=== PATIENT | female | born 1975 | race Caucasian/White ===

== ENCOUNTER 2017-09-20 18:55 | Emergency (ER) | payer BC, MEDICAID ==
[~2017-09-20] VITALS: Ht 157.5 cm; Wt 59.0 kg
[2017-09-20 19:28] LABS: APPEARANCE,URINE Clear (CLEAR); BILIRUBIN,URINE Negative (NEGATIVE); BLOOD, URINE Large Ery/uL (NEGATIVE); COLOR,URINE Yellow (YELLOW); KETONES,URINE Trace (NEGATIVE); LEUKOCYTE ESTERASE ,URINE Trace (NEGATIVE); NITRITE, URINE Negative (NEGATIVE); PROTEIN,URINE Negative (NEGATIVE); UGLUCOSE Negative (NEGATIVE); UROBILINOGEN,URINE 0.2 EU/dL (0.2)
[2017-09-20 19:36] LABS: RBC,URINE 21-50 /HPF (0-2)
[2017-09-20 19:38] LABS: BACTERIA,URINE Moderate /HPF (None Seen); SQUAMOUS EPITHELIAL CELL,UR Moderate /HPF (None Seen)
[2017-09-20 20:05] VITALS: BP 120/82
== END 2017-09-20 20:06 | disposition home or self-care (01) ==
LOC: ER 18:57
DX: N75.0 Cyst of Bartholin's gland (principal); N39.0 Urinary tract infection, site not specified; N93.8 Other specified abnormal uterine and vaginal bleeding
CPT/HCPCS: 81001; 84703; 87086; 99284; A4606; Z7610; 81000-TC

== ENCOUNTER 2018-08-05 16:30 | Emergency (ER) | payer MEDICAID ==
[~2018-08-05] VITALS: Ht 152.4 cm; Wt 54.4 kg
--- NOTE | 2018-08-05 17:00 | NUR ---
seen and assessed by the ED provider
[2018-08-05] MEDS ORDERED: ACETAMINOPHEN ES 500 MG TABLET ONE (17:47)
[2018-08-05] MEDS: ACETAMINOPHEN ES 500 MG TABLET PO ONE (17:55)
--- NOTE | 2018-08-05 18:35 | NUR ---
Patient discharged to home in stable condition. Written and verbal after care instructions given. Patient verbalizes understanding of instruction.
[2018-08-05 18:37] VITALS: BP 125/85
== END 2018-08-05 18:37 | disposition home or self-care (01) ==
LOC: ER 16:33
DX: S09.8XXA Other specified injuries of head, initial encounter (principal); S19.89XA Other specified injuries of other specified part of neck, initial encounter; Y04.2XXA Assault by strike against or bumped into by another person, initial encounter; Y93.89 Activity, other specified; Y92.89 Other specified places as the place of occurrence of the external cause; Y99.8 Other external cause status
CPT/HCPCS: 70450-TC; 72125-TC

== ENCOUNTER 2018-08-19 08:08 | Emergency (ER) | payer BC, MEDICAID ==
[~2018-08-19] VITALS: Ht 152.4 cm; Wt 57.6 kg
--- NOTE | 2018-08-19 08:20 | NUR ---
BIB SELF W C/O VAGINAL "CYST" W PAIN NOTED X 2 DAYS. TO ER BED 16, CHANGED TO [facility], AWAITING MD POST
--- NOTE | 2018-08-19 08:23 | NUR ---
KENRICK VILLEGAS AT BEDSIDE FOR EVAL.
--- NOTE | 2018-08-19 08:37 | NUR ---
Patient discharged to home in stable condition. Written and verbal after care instructions given. Patient verbalizes understanding of instruction.
[2018-08-19 08:38] VITALS: BP 134/75
== END 2018-08-19 08:39 | disposition home or self-care (01) ==
LOC: ER 08:09
DX: N75.0 Cyst of Bartholin's gland (principal)

== ENCOUNTER 2018-08-20 08:13 | Emergency (ER) | payer BC, MEDICAID ==
[~2018-08-20] VITALS: Ht 152.4 cm; Wt 56.7 kg
[2018-08-20] MEDS ORDERED: LIDOCAINE 2% 50 ML MDV IJ ONE (08:26)
--- NOTE | 2018-08-20 08:26 | NUR ---
PT ALERT WITH ORIENTATION X 4 WALKING INTO EMERGENCY ROOM FOR C/C OF CYST IN VAGINAL AREA EVALUATED BY I& D KENYETTA SET UP
[2018-08-20] MEDS ORDERED: LIDOCAINE 1%-EPI 1:100,000 50 ML VIAL IJ ONE (08:30)
--- NOTE | 2018-08-20 08:49 | NUR ---
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
[2018-08-20] MEDS ORDERED: IBUPROFEN 600 MG TABLET PO ONE ×2 (09:09→09:30)
[2018-08-20 09:36] VITALS: BP 106/67
== END 2018-08-20 09:37 | disposition home or self-care (01) ==
LOC: ER 08:18
DX: N76.4 Abscess of vulva (principal); N75.1 Abscess of Bartholin's gland
CPT/HCPCS: 56405; 99283; A4606; A6402; J3490; Z7610

== ENCOUNTER 2019-04-11 13:39 | Emergency (ER) | payer BC ==
[~2019-04-11] VITALS: Ht 162.6 cm; Wt 59.0 kg
[2019-04-11 13:48] VITALS: BP 111/71
--- NOTE | 2019-04-11 13:52 | NUR ---
C/O R BREAST PAIN AND BURNING SENSATION, RADIATING TO R ARM, 04/05 PS. PATIENT A/OX4, NO DISTRESS NOTED. KEPT COMFORTABLE.
--- NOTE | 2019-04-11 14:15 | NUR ---
US TECH AT BEDSIDE
[2019-04-11] MEDS ORDERED: IBUPROFEN 600 MG TABLET PO ONE ×2 (14:21→14:30)
== END 2019-04-11 14:55 | disposition home or self-care (01) ==
LOC: ER 13:43
DX: N64.4 Mastodynia (principal)
CPT/HCPCS: 76642-TC

== ENCOUNTER 2019-04-25 06:25 | Emergency (ER) | payer BC ==
[~2019-04-25] VITALS: Ht 152.4 cm; Wt 59.0 kg
--- NOTE | 2019-04-25 06:45 | NUR ---
PT BIB SELF C/O PAIN, BURNING UPON URINATION X3 DAYS, URINE COLLECTED AND SENT TO LAB, IN BED, AWAITING MED EVAL
[2019-04-25] MEDS ORDERED: PHENAZOPYRIDINE HCL 200 MG TABLET ONE (06:47)
[2019-04-25] MEDS ORDERED: PHENAZOPYRIDINE HCL 200 MG TABLET PO ONE (07:00)
[2019-04-25 07:02] LABS: APPEARANCE,URINE Clear (CLEAR); BILIRUBIN,URINE Negative (NEGATIVE); BLOOD, URINE Moderate Ery/uL (NEGATIVE); COLOR,URINE Yellow (YELLOW); KETONES,URINE Negative (NEGATIVE); LEUKOCYTE ESTERASE ,URINE Small (NEGATIVE); NITRITE, URINE Negative (NEGATIVE); PROTEIN,URINE Negative (NEGATIVE); UGLUCOSE Negative (NEGATIVE); UROBILINOGEN,URINE 0.2 EU/dL (0.2)
--- NOTE | 2019-04-25 07:25 | NUR ---
RECEIVED REPORT FROM AMADA RAMIREZ FOR EVELY[facility], PT IS AAOX4, NOT IN RESPIRATORY DISTRESS, V/S STABLE, KEPT RESTED AND COMFORTABLE, AWAITING LAB RESULTS.
[2019-04-25 07:49] LABS: BACTERIA,URINE 1+ /HPF (None Seen); SQUAMOUS EPITHELIAL CELL,UR Few /HPF (None Seen)
[2019-04-25 07:57] VITALS: BP 111/81
--- NOTE | 2019-04-25 07:58 | NUR ---
Patient discharged to home in stable condition. Written and verbal after care instructions given. Patient verbalizes understanding of instruction. Prescription given to patient.
== END 2019-04-25 07:58 | disposition home or self-care (01) ==
LOC: ER 06:26
DX: N39.0 Urinary tract infection, site not specified (principal)
CPT/HCPCS: 81000-TC; 84703-TC; 87086-TC

== ENCOUNTER 2019-04-27 11:36 | Emergency (ER) | payer BC ==
[~2019-04-27] VITALS: Ht 162.6 cm; Wt 59.0 kg
--- NOTE | 2019-04-27 11:50 | NUR ---
PT BIB SELF C/O FEVER SINCE YESTERDAY, ON PO ATB FOR UTI, PT IS AAOX4, NOT IN RESPIRATORY DISTRESS, HOOKED TO MONITOR, KEPT RESTED AND COMFORTABLE, WILL CONTINUE TO MONITOR.
--- NOTE | 2019-04-27 12:34 | NUR ---
SEEN AND EXAMINED BY JAJA TERESA
[2019-04-27] MEDS ORDERED: ONDANSETRON HCL/PF 4 MG/2 ML VIAL ONE (12:43)
[2019-04-27] MEDS ORDERED: MORPHINE SULFATE INJ 2 MG/ML DISP.SYRIN ONE (12:43)
[2019-04-27 12:50] LABS: APPEARANCE,URINE Clear (CLEAR); BILIRUBIN,URINE Negative (NEGATIVE); BLOOD, URINE Moderate Ery/uL (NEGATIVE); COLOR,URINE Yellow (YELLOW); KETONES,URINE 15 (NEGATIVE); LEUKOCYTE ESTERASE ,URINE Large (NEGATIVE); NITRITE, URINE Negative (NEGATIVE); PROTEIN,URINE Negative (NEGATIVE); UGLUCOSE Negative (NEGATIVE); UROBILINOGEN,URINE 0.2 EU/dL (0.2)
--- NOTE | 2019-04-27 12:50 | NUR ---
URINE SPECIMEN COLLECTED AND SENT TO LAB.
[2019-04-27 12:54] LABS: BACTERIA,URINE None seen /HPF (None Seen); SQUAMOUS EPITHELIAL CELL,UR Few /HPF (None Seen)
--- NOTE | 2019-04-27 12:55 | NUR ---
IV LINE ESTABLISHED, BLOOD DRAWNED AND SENT TO LAB.
[2019-04-27] MEDS ORDERED: IV NS 0.9% 1,000 ML BAG IV ONE (13:00)
[2019-04-27] MEDS ORDERED: MORPHINE SULFATE INJ 2 MG/ML DISP.SYRIN IV ONE (13:00)
[2019-04-27] MEDS ORDERED: ONDANSETRON HCL/PF 4 MG/2 ML VIAL IVP ONE (13:00)
[2019-04-27 13:09] LABS: BASOPHILS % (AUTO) 0.2 % (0.0-2.0); EOSINOPHILS % (AUTO) 0.1 % (0.0-6.0); HEMATOCRIT 35 % (33-45); HEMOGLOBIN 11.9 g/dL (11.5-14.8); LYMPHOCYTES # (AUTO) 0.8 /CMM (0.8-4.8); MEAN CORPUSCULAR HGB CONC 34 g/dl (31.0-36.0); MEAN CORPUSCULAR VOLUME 85 fL (82-100); MONOCYTES # (AUTO) 0.4 /CMM (0.1-1.30); MONOCYTES % (AUTO) 7.1 % (2.0-12.0); NEUTROPHILS # (AUTO) 4.9 /CMM (1.8-8.9); NEUTROPHILS % (AUTO) 79.6 % (43.0-81.0); PLATELET COUNT (AUTO) 175 /CMM (150-450); RED BLOOD CELL COUNT(AUTO) 4.07 MIL/uL (4.0-5.2); WHITE BLOOD COUNT (AUTO) 6.2 K/uL (4.3-11.0)
[2019-04-27 13:17] LABS: CREATININE 0.9 mg/dL (0.6-1.3); POTASSIUM 3.1 mmol/L (3.5-5.1)
[2019-04-27 13:34] LABS: BILIRUBIN,DIRECT 0.1 mg/dL (0.0-0.2); BILIRUBIN,TOTAL 0.4 mg/dL (0.2-1.0); CALCIUM, SERUM 9.3 mg/dL (8.5-10.1); TOTAL PROTEIN, SERUM 8.4 g/dL (6.4-8.2)
[2019-04-27] MEDS ORDERED: CEFTRIAXONE 1GM BAG (ER ONLY) 50 ML IV ONE (13:58)
[2019-04-27] MEDS ORDERED: POTASSIUM CHLORIDE 20 MEQ TAB.PRT.SR PO ONE ×2 (13:58→14:00)
[2019-04-27] MEDS ORDERED: AZITHROMYCIN 250 MG TABLET ONE (13:58)
[2019-04-27] MEDS ORDERED: AZITHROMYCIN 250 MG TABLET PO ONE (14:00)
[2019-04-27] MEDS ORDERED: CEFTRIAXONE 1GM BAG (ER ONLY) 1 GM/50 ML PIGGYBACK IV ONE (14:00)
--- NOTE | 2019-04-27 14:52 | NUR ---
IV removed. Catheter intact and site benign. Pressure and 4x4 applied to site. No bleeding noted. Patient discharged to home in stable condition. Written and verbal after care instructions given. Patient verbalizes understanding of instruction.
[2019-04-27 14:53] VITALS: BP 106/62
== END 2019-04-27 14:55 | disposition home or self-care (01) ==
LOC: ER 11:36
DX: N39.0 Urinary tract infection, site not specified (principal); N76.89 Other specified inflammation of vagina and vulva; N76.2 Acute vulvitis
CPT/HCPCS: 36415; 80048; 80076; 81001; 84703; 85025; 87086; 87110; 87210; 87491; 87591; 96365; 96375; 99283; J0696; J2270; J2405; J7030; 81000-TC

== ENCOUNTER 2021-06-11 21:27 | Emergency (ER) | payer BC ==
[~2021-06-11] VITALS: Ht 165.1 cm; Wt 64.9 kg
--- NOTE | 2021-06-11 21:30 | NUR ---
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
[2021-06-11] MEDS ORDERED: IBUPROFEN 600 MG TABLET ONE (21:57)
[2021-06-11] MEDS ORDERED: IBUPROFEN 600 MG TABLET PO ONE (22:00)
--- NOTE | 2021-06-11 22:10 | NUR ---
AT PT'S BEDSIDE
[2021-06-11] MEDS ORDERED: CEPHALEXIN MONOHYDRATE 500 MG CAPSULE PO ONE ×2 (22:23→22:30)
[2021-06-11] MEDS ORDERED: SULFAMETH/TRIMETH 800/160 MG 1 UDTAB TABLET ONE (22:23)
[2021-06-11] MEDS ORDERED: IBUP-1955 PO (22:24)
[2021-06-11] MEDS ORDERED: SULF1TAB48 PO (22:24)
[2021-06-11] MEDS ORDERED: CEPH500T PO (22:24)
[2021-06-11] MEDS ORDERED: TRAM50TA2 PO (22:24)
[2021-06-11] MEDS ORDERED: SULFAMETH/TRIMETH 800/160 MG 1 UDTAB TABLET PO ONE (22:30)
[2021-06-11 22:31] VITALS: BP 133/73
--- NOTE | 2021-06-11 22:32 | NUR ---
Patient discharged to home in stable condition. RX Written and verbal after care instructions given. Patient verbalizes understanding of instruction. PT ambulatory with a steady gait.
[2021-06-12] MEDS ORDERED: CLIN300C12 PO (10:06)
== END 2021-06-11 22:30 | disposition home or self-care (01) ==
LOC: ER 21:31
DX: N75.1 Abscess of Bartholin's gland (principal); Z79.899 Other long term (current) drug therapy
CPT/HCPCS: 56420; 99284; A6403 ×2; A6407 ×2

== ENCOUNTER 2021-06-12 09:39 | Emergency (ER) | payer BC ==
[~2021-06-12] VITALS: Ht 162.6 cm; Wt 63.5 kg
[2021-06-12 09:39] VITALS: BP 112/75
[~2021-06-12 09:39] MED LIST: CEPH500T PO; IBUP-1955 PO; SULF1TAB48 PO; TRAM50TA2 PO
--- NOTE | 2021-06-12 09:39 | NUR ---
BIBS PT C/O OF ALLERGIC REACTION AND WAS PREVIOUSLY PRESCRIBED CEPHALEXIN AND BACTRIM AND WANTED TO BE PRESCRIBED DIFFERENT ANTIBIOTICS
--- NOTE | 2021-06-12 10:05 | NUR ---
DR CONSULTED PT. PT GOT NEW PRESCRIPTION. VITAL SIGNS WITHIN NORMAL LIMITS. PT WAS DISCHARGED.
[2021-06-12] MEDS ORDERED: CLIN300C12 PO (10:06)
[2021-06-23] MEDS ORDERED: IBUP-1955 PO (16:56)
== END 2021-06-12 11:00 | disposition home or self-care (01) ==
LOC: ER 10:41
DX: T78.40XA Allergy, unspecified, initial encounter (principal); X58.XXXA Exposure to other specified factors, initial encounter

== ENCOUNTER → 2021-06-23 | Emergency (ER) | payer BC ==
[~2021-06-23] VITALS: Ht 162.6 cm; Wt 63.5 kg
[~2021-06-23] MED LIST changes: +ACETAMINOPHEN ES 500 MG TABLET ONE; +ACETAMINOPHEN ES 500 MG TABLET PO ONE; +CLIN300C12 PO; +KETOROLAC TROMETHAMINE INJ 30 MG/ML VIAL IV ONE; +KETOROLAC TROMETHAMINE INJ 30 MG/ML VIAL ONE
--- NOTE | 2021-06-23 13:01 | NUR ---
bibs c/o of r lower abdominal pain that radiates to her back [id number]. pt had a fall 07/21 and stated her pain has worsened. pt vital within normal limits. pt breathing is regular and unlabored. will continue to monitor
--- NOTE | 2021-06-23 13:07 | NUR ---
IV INITIATED R AC 20G. LABS WERE COLLECTED AND SENT.
--- NOTE | 2021-06-23 13:11 | NUR ---
URINE COLLECTED AND SENT TO LAB
[2021-06-23 13:58] LABS: BASOPHILS % (AUTO) 0.3 % (0.0-2.0); EOSINOPHILS % (AUTO) 1.4 % (0.0-6.0); HEMATOCRIT 37 % (33-45); HEMOGLOBIN 12.2 g/dL (11.5-14.8); LYMPHOCYTES # (AUTO) 1.6 K/uL (0.8-4.8); LYMPHOCYTES % (AUTO) 28.5 % (20.0-44.0); MEAN CORPUSCULAR HGB CONC 33 g/dl (31.0-36.0); MEAN CORPUSCULAR VOLUME 88 fL (82-100); MONOCYTES # (AUTO) 0.3 K/uL (0.1-1.30); MONOCYTES % (AUTO) 5.4 % (2.0-12.0); NEUTROPHILS # (AUTO) 3.7 K/uL (1.8-8.9); NEUTROPHILS % (AUTO) 64.4 % (43.0-81.0); PLATELET COUNT (AUTO) 219 K/uL (150-450); RED BLOOD CELL COUNT(AUTO) 4.19 MIL/uL (4.0-5.2); WHITE BLOOD COUNT (AUTO) 5.7 K/uL (4.3-11.0)
[2021-06-23 14:05] LABS: CALCIUM, SERUM 8.8 mg/dL (8.5-10.1); CREATININE 0.7 mg/dL (0.6-1.3); POTASSIUM 3.8 mmol/L (3.5-5.1)
[2021-06-23 14:10] LABS: ALBUMIN 3.8 g/dL (3.4-5.0); BILIRUBIN,DIRECT 0.1 mg/dL (0.0-0.2); BILIRUBIN,TOTAL 0.2 mg/dL (0.2-1.0); TOTAL PROTEIN, SERUM 7.9 g/dL (6.4-8.2)
[2021-06-23 15:00] LABS: BILIRUBIN,URINE NEGATIVE (NEGATIVE); COLOR,URINE YELLOW (YELLOW); LEUKOCYTE ESTERASE ,URINE NEGATIVE (NEGATIVE); NITRITE, URINE NEGATIVE (NEGATIVE); PH,URINE 5.5 (5.0-8.0); PROTEIN,URINE NEGATIVE (NEGATIVE); UGLUCOSE NEGATIVE (NEGATIVE); UROBILINOGEN,URINE 0.2 EU/dL (0.2)
[2021-06-23 15:06] LABS: BACTERIA,URINE None seen /HPF (None Seen); MUCUS,URINE Few /LPF (None Seen); WBC,URINE 0-2 /HPF (0-3)
--- NOTE | 2021-06-23 15:21 | NUR ---
STILL PENDING TEST FOR CT abd/pel @[id number], 1521
--- NOTE | 2021-06-23 15:58 | NUR ---
PT TAKEN TO CT
--- NOTE | 2021-06-23 17:05 | NUR ---
Patient discharged to home in stable condition. Written and verbal after care instructions given. Patient verbalizes understanding of instruction.
[2021-06-23 17:06] VITALS: BP 117/97
== END | disposition home or self-care (01) ==
LOC: ER 13:03
DX: R10.31 Right lower quadrant pain (principal); R10.33 Periumbilical pain; N75.0 Cyst of Bartholin's gland; R31.29 Other microscopic hematuria; Z79.899 Other long term (current) drug therapy
CPT/HCPCS: 36415; 74176; 80048; 80076; 81001; 83690; 84703; 85025; 87086; 99284; J1885

== ENCOUNTER 2023-12-20 16:35 | Emergency (ER) | payer BC ==
[~2023-12-20] VITALS: Ht 162.6 cm; Wt 59.0 kg
[~2023-12-20 16:35] MED LIST changes: -ACETAMINOPHEN ES 500 MG TABLET ONE; -ACETAMINOPHEN ES 500 MG TABLET PO ONE; -KETOROLAC TROMETHAMINE INJ 30 MG/ML VIAL IV ONE; -KETOROLAC TROMETHAMINE INJ 30 MG/ML VIAL ONE
[2023-12-20] MEDS ORDERED: CLIN300C12 PO (20:45)
[2023-12-20] MEDS ORDERED: CEFI400C4 PO (20:45)
[2023-12-20] MEDS ORDERED: HYDR-4209 PO (20:45)
[2023-12-20 21:52] VITALS: BP 120/81; TEMP 98.3; O2SAT 97
== END 2023-12-20 21:53 | disposition home or self-care (01) ==
LOC: ER 16:46
DX: N75.1 Abscess of Bartholin's gland (principal)

== ENCOUNTER 2025-03-13 08:46 | Emergency (ER) | payer BC ==
[~2025-03-13] VITALS: Ht 160 cm; Wt 57.2 kg
[~2025-03-13 08:46] MED LIST changes: +CEFI400C4 PO; +HYDR-4209 PO
[2025-03-13 08:52] VITALS: BP 93/73; TEMP 98.2; O2SAT 97
[2025-03-13] MEDS ORDERED: LIDOCAINE 1% INJ 50 ML MDV IJ ONE (09:00)
[2025-03-13] MEDS ORDERED: DOXY100T2 PO (09:01)
[2025-03-13] MEDS ORDERED: AMOX-430 PO (09:01)
[2025-03-13] MEDS: LIDOCAINE 1% INJ 50 ML MDV IJ ONE (09:34)
== END 2025-03-13 09:48 | disposition home or self-care (01) ==
LOC: ER 08:51
DX: N75.1 Abscess of Bartholin's gland (principal); Z79.1 Long term (current) use of non-steroidal anti-inflammatories (NSAID); Z79.899 Other long term (current) drug therapy
CPT/HCPCS: 99284; 56420; J3490

== ENCOUNTER 2025-03-21 18:33 | Emergency (ER) | payer BC ==
[~2025-03-21] VITALS: Ht 157.5 cm; Wt 58.1 kg
[2025-03-21 18:33] VITALS: BP 95/62; TEMP 98.2; O2SAT 98
[~2025-03-21 18:33] MED LIST changes: +AMOX-430 PO; +DOXY100T2 PO
== END 2025-03-21 21:01 | disposition left against medical advice (07) ==
LOC: ER 18:38
DX: R22.9 Localized swelling, mass and lump, unspecified (principal); Z53.21 Procedure and treatment not carried out due to patient leaving prior to being seen by health care provider